=== PATIENT | female | born 1940 | race Caucasian/White ===

== ENCOUNTER 2018-06-19 10:33 | Day surgery (SDC) | payer MEDICARE ==
[2018-06-19] VITALS (10 sets, daily range): BP systolic 123–171; BP diastolic 64–108
[~2018-06-19] VITALS: Ht 167.6 cm; Wt 88.2 kg
[2018-06-19] MEDS ORDERED: normal saline 1000ml 1,000 ML IV SCH ×2 (11:05→15:10)
[2018-06-19] MEDS ORDERED: nitroGLYCERIN 0.4mg SUBLingual tab SL PRN (11:05)
[2018-06-19] MEDS ORDERED: LORazepam 0.5 MG tablet PO PRN (11:05)
[2018-06-19] MEDS ORDERED: diphenhydrAMINE 25mg capsule PO PRN (11:05)
[2018-06-19] MEDS ORDERED: NAPR220T67 PO (11:22)
[2018-06-19] MEDS ORDERED: EYE SUPPLEMENT PO (11:22)
[2018-06-19] MEDS ORDERED: OXYC10TA47 PO (11:22)
[2018-06-19] MEDS ORDERED: SERT25TA PO (11:22)
[2018-06-19] MEDS ORDERED: DEXL60CA3 PO (11:22)
[2018-06-19 11:39] LABS: BASOPHILS # (AUTO) 0.1 X10'3 (0-0.2); BASOPHILS % (AUTO) 1.6 % (0-1); EOSINOPHILS # (AUTO) 0.2 X10'3 (0-0.9); EOSINOPHILS % (AUTO) 2.1 % (0-6); LYMPHOCYTES # (AUTO) 1.1 X10'3 (1.1-4.8); LYMPHOCYTES % (AUTO) 13.3 % (21-51); MEAN CORPUSCULAR HEMOGLOBIN 29.9 PG (27.0-31.0); MEAN CORPUSCULAR HGB CONC 33.8 % (33.0-36.5); MEAN CORPUSCULAR VOLUME 88.2 FL (78-98); MEAN PLATELET VOLUME 11.1 FL (7.4-10.4); MONOCYTES # (AUTO) 0.6 X10'3 (0-0.9); MONOCYTES % (AUTO) 6.9 % (2-12); NEUTROPHILS # (AUTO) 6.3 X10'3 (1.8-7.7); NEUTROPHILS % (AUTO) 76.1 % (42-75); PRE OP HEMATOCRIT 46.2 % (35.0-45.0); PRE OP HEMOGLOBIN 15.6 g/dL (12.0-16.0); PRE OP PLATELET COUNT 270 X10'3 (140-440); RED BLOOD COUNT 5.24 X10'6 (4.20-5.60); RED CELL DISTRIBUTION WIDTH 14.6 % (11.5-14.5)
[2018-06-19 11:47] LABS: INR 1.1 INR; PARTIAL THROMBOPLASTIN TIME 28 SECONDS (22-32)
[2018-06-19 12:15] LABS: ALBUMIN 3.3 G/DL (3.4-5.0); ANION GAP 8 (8-16); BLOOD UREA NITROGEN 24 MG/DL (7-18); BUN/CREATININE RATIO 35.3 (6.6-38.0); CALCIUM 8.3 MG/DL (8.5-10.1); CHLORIDE 105 MMOL/L (99-107); CREATININE 0.68 MG/DL (0.40-0.90); GLUCOSE 90 MG/DL (70-104); SODIUM 140 MMOL/L (135-145); TOTAL CARBON DIOXIDE 26.7 MMOL/L (24-32); eGFR 84 ML/MIN
[2018-06-19 12:45] LABS: PLATELET ESTIMATE NORMAL
[2018-06-19 12:46] LABS: LARGE PLATELETS MODERATE
[2018-06-19] MEDS ORDERED: LIDOcaine 1% 30ml preserv. free vial ONE (13:20)
[2018-06-19] MEDS ORDERED: heparin 1,000unit/ml 10ml vial 0 ML ONE (13:20)
[2018-06-19] MEDS ORDERED: iohexol 350 MG/ML 50ML vial IV ONE (13:21)
[2018-06-19] MEDS ORDERED: iohexol 350MG/ML 100ml bottle IV ONE (13:21)
[2018-06-19] MEDS ORDERED: midazolam 2 mg/2 ml injection ONE (13:47)
[2018-06-19] MEDS ORDERED: fentaNYL/PF 50MCG/1 ML 2ML syringe ONE (13:47)
[2018-06-19] MEDS ORDERED: HYDROcodone/acetaminophen 5mg/325mg tablet PO PRN (15:10)
[2018-06-19] MEDS ORDERED: proCHLORperazine 10 MG/2 ml inj IV PRN (15:10)
[2018-06-19] MEDS ORDERED: OXAZEpam 15mg capsule PO PRN (15:10)
[2018-06-19] MEDS ORDERED: HYDROcodone/acetaminophen 10/325mg tab PO PRN (15:10)
[2018-06-19] MEDS ORDERED: ondansetron/PF 4mg/2ml inj IV PRN (15:10)
== END 2018-06-19 20:00 | disposition home or self-care (01) ==
LOC: SSTAY O 10:33
PROVIDERS: ATTEND Internal Medicine Cardiovascular Disease
DX: I25.10 Atherosclerotic heart disease of native coronary artery without angina pectoris (principal); I44.4 Left anterior fascicular block; F17.210 Nicotine dependence, cigarettes, uncomplicated; Z90.49 Acquired absence of other specified parts of digestive tract; Z90.710 Acquired absence of both cervix and uterus; Z87.39 Personal history of other diseases of the musculoskeletal system and connective tissue; Z79.891 Long term (current) use of opiate analgesic; Z79.899 Other long term (current) drug therapy; Z98.890 Other specified postprocedural states
CPT/HCPCS: 36415; 71046; 80048; 85025; 85610; 85730; 93005; 93458; 99152; 99153; A6257; C1760; C1769; J1644; J2250; J3010; J3490; J7030; Q0163; Q9967; A4620

== ENCOUNTER 2018-10-01 09:06 | Inpatient (IN) | payer MEDICARE ==
[2018-09-19 10:37] LABS: MEAN CORPUSCULAR HGB CONC 32.4 % (33.0-36.5); MEAN CORPUSCULAR VOLUME 89.7 FL (78-98); MEAN PLATELET VOLUME 10.4 FL (7.4-10.4); PRE OP HEMOGLOBIN 16.5 g/dL (12.0-16.0); PRE OP PLATELET COUNT 316 X10'3 (140-440); RED BLOOD COUNT 5.69 X10'6 (4.20-5.60); RED CELL DISTRIBUTION WIDTH 15.7 % (11.5-14.5)
[2018-09-19 10:49] LABS: ALBUMIN 3.6 G/DL (3.4-5.0); ALBUMIN/GLOBULIN RATIO 1.1 (1.1-1.5); ALKALINE PHOSPHATASE 80 IU/L (46-116); BLOOD UREA NITROGEN 15 MG/DL (7-18); BUN/CREATININE RATIO 23.1 (6.6-38.0); CALCIUM 8.8 MG/DL (8.5-10.1); CHLORIDE 103 MMOL/L (99-107); CREATININE 0.65 MG/DL (0.40-0.90); PRE OP ALT 16 U/L (30-65); PRE OP ANION GAP 9 (8-16); PRE OP AST 14 U/L (10-37); PRE OP BILIRUB, TOTAL 0.6 MG/DL (0.0-1.0); PRE OP GLUCOSE 100 MG/DL (70-104); PRE OP POTASSIUM 3.9 MMOL/L (3.4-5.1); PRE OP SODIUM 140 MMOL/L (135-145); TOTAL CARBON DIOXIDE 28.4 MMOL/L (24-32); TOTAL PROTEIN 6.8 G/DL (6.4-8.2); eGFR 88 ML/MIN
[2018-09-19 10:56] LABS: LARGE PLATELETS FEW; PLATELET ESTIMATE NORMAL; TOTAL CELLS COUNTED 100
[~2018-10-01] VITALS: Ht 167.6 cm; Wt 84.1 kg
[2018-10-01] VITALS (23 sets, daily range): BP systolic 106–144; BP diastolic 42–91
[~2018-10-01 09:06] MED LIST: ACET-812 PO; DEXL60CA3 PO; EYE SUPPLEMENT PO; HYDR-3973 PO; LACT10SO PO; NAPR220T67 PO; ROPIVAcaine 0.5% (5mg/ml) 30ml vial ONE; SERT50TA10 PO; VANCOMYCIN INJ 1000 MG in NORMAL SALINE 250ml IV.SOLN IV ONE; ceFAZolin inj. 2,000 MG in dextrose 5%-water 100 ML IV ONE; famotidine 20mg tablet PO ONE; ketorolac trometh. 30mg/ml inj. ONE; ringers solution, lacted 1,000 ML IV SCH; tranexamic acid inj. 870 MG in normal saline 100ml IV soln 100 ML IV ONE
[2018-10-01] MEDS ORDERED: BUPIVAcaine/PF 7.5mg/ml (0.75%) 10ml vial ONE (10:23)
[2018-10-01] MEDS ORDERED: tetracaine 1% (10mg/ml) pres. free inj. ONE (10:23)
[2018-10-01] MEDS ORDERED: ePHEDrine 50MG/ML INJ. ONE (10:25)
[2018-10-01] MEDS ORDERED: phenylephrine 10mg/ml inj. ONE (10:25)
[2018-10-01] MEDS ORDERED: morphine /PF 1mg/ml 10ml inj. ONE (10:26)
[2018-10-01] MEDS ORDERED: MIDAZolam 5mg/5ml vial ONE (10:27)
[2018-10-01] MEDS ORDERED: fentaNYL/PF 50MCG/1 ML 2ML syringe ONE (10:27)
[2018-10-01] MEDS ORDERED: tranexamic acid inj. 870 MG in normal saline 100ml IV soln 100 ML IV ONE ×2 (10:40→16:00)
[2018-10-01] MEDS ORDERED: LIDOcaine 1%/PF 5ML 10 MG/ML VIAL ONE (10:48)
[2018-10-01] MEDS ORDERED: propofol inj 20 ML IV ONE ×2 (10:48→11:50)
[2018-10-01] MEDS ORDERED: naloxone 2mg/2ml inj 1.7 MG in normal saline 500ml IV soln 500 ML IV PRN (11:51)
[2018-10-01] MEDS ORDERED: ringers solution, lacted 1,000 ML IV SCH (11:51)
[2018-10-01] MEDS ORDERED: HYDROmorphone inj. 0.5 MG/0.5 ML DISP.SYRIN IV PRN ×2 (11:55→12:55)
[2018-10-01] MEDS ORDERED: morphine 4 MG/ML inj SYRINge IV PRN (11:55)
[2018-10-01] MEDS ORDERED: diphenhydrAMINE 50 mg/ml inj IV PRN (11:55)
[2018-10-01] MEDS ORDERED: ondansetron/PF 4mg/2ml inj IV PRN ×3 (11:55→12:55)
[2018-10-01] MEDS ORDERED: diphenhydrAMINE 25mg capsule PO PRN ×2 (12:55)
[2018-10-01] MEDS ORDERED: magnesium hydroxide 30ml (MOM) UD suspension PO PRN (12:55)
[2018-10-01] MEDS: potassium cl 20mEq in 1/2 NS 1,000 ML IV SCH ×2 (12:55→20:06)
[2018-10-01] MEDS ORDERED: bisacodyl 10mg suppository rectal RC PRN (12:55)
[2018-10-01] MEDS ORDERED: oxyCODONE IR 5mg (immed. release) tablet PO PRN (12:55)
[2018-10-01] MEDS ORDERED: HYDROmorphone 1 mg/ml syringe IV PRN (12:55)
[2018-10-01] MEDS ORDERED: acetaminophen 325mg tablet PO PRN (12:55)
[2018-10-01] MEDS: gabapentin 300mg capsule PO SCH ×2 (13:00→20:05)
--- NOTE | 2018-10-01 13:15 | NUR ---
Received from OR via BED , accompanied by Anesthesiologist and report given by Anesthesiolgist. PATIENT WAKING UP, DENIES PAIN, V/S WNL, NEUROVASCULAR CHECKS INTACT, 20G PIV LUE , DRESSING TO LEFT KNEE CDI W/ COLD POWDER PACK AND W/ SCD ON. F/C DRAINING CLEAR YELLOW URINE. SENSATION T-9.
[2018-10-01] MEDS: ROPIVACAINE HCL/PF PAIN PUMP 400 ML IJ SCH (13:31)
[2018-10-01] MEDS: acetaminophen 325mg tablet PO SCH ×2 (14:00→20:06)
[2018-10-01] MEDS: ketorolac tromethamine 15mg/ml inj. IV SCH ×2 (14:00→20:06)
--- NOTE | 2018-10-01 15:15 | NUR ---
PATIENT WAKING UP, DENIES PAIN, V/S WNL, NEUROVASCULAR CHECKS INTACT, 20G PIV LUE , DRESSING TO LEFT KNEE CDI W/ COLD POWDER PACK AND W/ SCD ON. F/C DRAINING CLEAR YELLOW URINE. SENSATION T-11. PATIENT TAKEN TO ORTHO WITH ALL BELONGINGS AND HOOKED UP TO MONITORS IN ROOM AND REPORT GIVEN TO REGIONAL SAFETY MANAGER WHO HAS TAKEN OVER PATIENT CARE.
[2018-10-01] MEDS: lactulose 20gm/30ml cup PO SCH ×2 (16:00→23:33)
[2018-10-01] MEDS: ceFAZolin 1GM/D5W- ADD-VANTAGE 50 ML IV SCH ×2 (16:30→23:33)
--- NOTE | 2018-10-01 18:09 | NUR ---
RECEIVED REPORT FROM VENESSA MORATAYA AND ASSUMED PATIENT CARE
[2018-10-01] MEDS ORDERED: vancomycin/NS 1 GM ADD-VANTAGE 250 ML IV SCH (20:00)
[2018-10-01] MEDS: sennosides 8.6mg tablet PO SCH (20:05)
[2018-10-02 02:00] VITALS: BP 118/56
[2018-10-02] MEDS: ketorolac tromethamine 15mg/ml inj. IV SCH ×2 (02:07→08:06)
[2018-10-02] MEDS: acetaminophen 325mg tablet PO SCH ×4 (02:07→21:00)
[2018-10-02] MEDS: potassium cl 20mEq in 1/2 NS 1,000 ML IV SCH ×2 (04:55→13:24)
[2018-10-02 06:00] VITALS: BP 136/64
--- NOTE | 2018-10-02 06:00 | NUR ---
Patient in room [facility]TH[facility] 4017. I have received report from MOE MORATAYA and had the opportunity to ask questions and assume patient care.
[2018-10-02 06:01] LABS: BASOPHILS % (AUTO) 0.3 % (0-1); EOSINOPHILS # (AUTO) 0.1 X10'3 (0-0.9); HEMATOCRIT 40.8 % (35.0-45.0); HEMOGLOBIN 13.7 g/dl (12.0-16.0); LYMPHOCYTES # (AUTO) 1.1 X10'3 (1.1-4.8); LYMPHOCYTES % (AUTO) 10.5 % (21-51); MEAN CORPUSCULAR HEMOGLOBIN 30.2 PG (27.0-31.0); MEAN CORPUSCULAR HGB CONC 33.7 % (33.0-36.5); MEAN CORPUSCULAR VOLUME 89.6 FL (78-98); MEAN PLATELET VOLUME 10.7 FL (7.4-10.4); MONOCYTES # (AUTO) 0.9 X10'3 (0-0.9); MONOCYTES % (AUTO) 8.8 % (2-12); NEUTROPHILS % (AUTO) 79.4 % (42-75); PLATELET COUNT 235 X10'3 (140-440); RED BLOOD COUNT 4.55 X10'6 (4.20-5.60); RED CELL DISTRIBUTION WIDTH 16.2 % (11.5-14.5); WHITE BLOOD COUNT 10.1 X10'3 (4.5-11.0)
--- NOTE | 2018-10-02 06:06 | NUR ---
REPORT GIVEN TO JANNET MORATAYA
[2018-10-02 06:19] LABS: ANION GAP 7 (8-16); CHLORIDE 106 MMOL/L (99-107); POTASSIUM 4.8 MMOL/L (3.5-5.1); SODIUM 139 MMOL/L (135-145); TOTAL CARBON DIOXIDE 26.1 MMOL/L (24-32)
[2018-10-02 06:39] LABS: LARGE PLATELETS FEW; PLATELET ESTIMATE NORMAL
[2018-10-02] MEDS ORDERED: non-formulary drug (Acetaminophen (Tylenol Extra Strength) 1 TABLET) PO SCH (08:00)
[2018-10-02] MEDS ORDERED: EYE SUPPLEMENT PO SCH (08:00)
[2018-10-02] MEDS: lactulose 20gm/30ml cup PO SCH ×2 (08:06→15:24)
[2018-10-02] MEDS: pantoprazole 40mg Tablet.DR PO SCH (08:06)
[2018-10-02] MEDS: gabapentin 300mg capsule PO SCH ×3 (08:06→20:59)
[2018-10-02] MEDS: aspirin 325mg tablet PO SCH (08:07)
[2018-10-02] MEDS: sertraline 25mg tablet PO SCH (08:07)
[2018-10-02 10:00] VITALS: BP 131/65
--- NOTE | 2018-10-02 11:18 | NUR ---
Joint replacement consult: Pt seen by RD for written/verbal high protein ed. RD reviewed high protein needs for wound healing, immune strength, high protein foods, and protein supplementation options. RD contact information provided in case of further questions. Pt declines additional proteins. RD received pt meal preferences for lunch and dinner and d/w dietary. Will continue to monitor. Addendum: 10/02/18 at [address] Amended: Links added.
[2018-10-02 14:00] VITALS: BP 129/72
[2018-10-02] MEDS: ROPIVACAINE HCL/PF PAIN PUMP 400 ML IJ SCH (15:24)
--- NOTE | 2018-10-02 15:25 | NUR ---
INCREASED ON-Q PUMP TO 10ML/HR. WILL CONTINUE TO MONITOR,
[2018-10-02 18:00] VITALS: BP 129/72
--- NOTE | 2018-10-02 18:15 | NUR ---
Problems reprioritized. Patient report given, questions answered & plan of care reviewed with CH[place] MORATAYA.
[2018-10-02] MEDS: oxyCODONE IR 5mg (immed. release) tablet PO PRN (20:03)
[2018-10-02] MEDS: celeCOXIB 100mg capsule PO SCH (21:00)
[2018-10-02] MEDS: sennosides 8.6mg tablet PO SCH (21:00)
[2018-10-02 22:00] VITALS: BP 131/57
[2018-10-03] MEDS: oxyCODONE IR 5mg (immed. release) tablet PO PRN ×3 (00:51→09:23)
[2018-10-03] MEDS: acetaminophen 325mg tablet PO SCH ×2 (01:46→08:08)
[2018-10-03 06:00] VITALS: BP 115/55
--- NOTE | 2018-10-03 06:00 | NUR ---
Patient in room [facility]TH[facility] 4017. I have received report from CH[place] MORATAYA and had the opportunity to ask questions and assume patient care.
[2018-10-03 06:37] LABS: BASOPHILS % (AUTO) 0.2 % (0-1); EOSINOPHILS # (AUTO) 0.2 X10'3 (0-0.9); EOSINOPHILS % (AUTO) 2.6 % (0-6); HEMATOCRIT 38.8 % (35.0-45.0); HEMOGLOBIN 12.8 g/dl (12.0-16.0); LYMPHOCYTES % (AUTO) 12.6 % (21-51); MEAN CORPUSCULAR HEMOGLOBIN 29.5 PG (27.0-31.0); MEAN CORPUSCULAR HGB CONC 32.9 % (33.0-36.5); MEAN CORPUSCULAR VOLUME 89.6 FL (78-98); MEAN PLATELET VOLUME 10.9 FL (7.4-10.4); MONOCYTES % (AUTO) 12.7 % (2-12); NEUTROPHILS # (AUTO) 5.5 X10'3 (1.8-7.7); NEUTROPHILS % (AUTO) 71.9 % (42-75); PLATELET COUNT 231 X10'3 (140-440); RED BLOOD COUNT 4.33 X10'6 (4.20-5.60); RED CELL DISTRIBUTION WIDTH 16.3 % (11.5-14.5); WHITE BLOOD COUNT 7.7 X10'3 (4.5-11.0)
[2018-10-03] MEDS ORDERED: ASPI-1 PO (07:50)
[2018-10-03] MEDS: lactulose 20gm/30ml cup PO SCH ×2 (08:00)
[2018-10-03] MEDS: celeCOXIB 100mg capsule PO SCH (08:08)
[2018-10-03] MEDS: gabapentin 300mg capsule PO SCH (08:08)
[2018-10-03] MEDS: pantoprazole 40mg Tablet.DR PO SCH (08:08)
[2018-10-03] MEDS: aspirin 325mg tablet PO SCH (08:08)
[2018-10-03] MEDS: sertraline 25mg tablet PO SCH (08:09)
[2018-10-03 10:00] VITALS: BP 163/63
--- NOTE | 2018-10-03 10:30 | NUR ---
PATIENT DC HOME SAFELY WITH NEPHEW, ALL BELONGINGS IN POSSESSION. PATIENT ACKNOWLEDGES UNDERSTANDING OF DISCHARGE INSTRUCTIONS. IV REMOVED.
[2018-10-03] MEDS ORDERED: acetaminophen 325mg tablet PO PRN (12:55)
== END 2018-10-03 10:35 | disposition home or self-care (01) | DRG 470 ==
LOC: PAS IN 09:06 → EDSTATUS 12:00 → ORTHO 4S 15:25
PROVIDERS: ADMIT Orthopaedic Surgery; ATTEND Orthopaedic Surgery
PROC: 8E0YXBZ Computer Assisted Procedure of Lower Extremity (ICD-10-PCS; 2018-10-01)
PROC: 8E0Y0CZ Robotic Assisted Procedure of Lower Extremity, Open Approach (ICD-10-PCS; 2018-10-01)
PROC: 3E0T3BZ Introduction of Anesthetic Agent into Peripheral Nerves and Plexi, Percutaneous Approach (ICD-10-PCS; 2018-10-01)
PROC: 0SRD0J9 Replacement of Left Knee Joint with Synthetic Substitute, Cemented, Open Approach (ICD-10-PCS; principal; 2018-10-01 10:25)
DX: M17.12 Unilateral primary osteoarthritis, left knee (principal); K21.9 Gastro-esophageal reflux disease without esophagitis; F32.9 Major depressive disorder, single episode, unspecified; M25.762 Osteophyte, left knee; M21.062 Valgus deformity, not elsewhere classified, left knee; F17.200 Nicotine dependence, unspecified, uncomplicated; G89.29 Other chronic pain; M54.9 Dorsalgia, unspecified; R26.9 Unspecified abnormalities of gait and mobility; E66.9 Obesity, unspecified; Z90.49 Acquired absence of other specified parts of digestive tract; Z79.899 Other long term (current) drug therapy; Z68.29 Body mass index [BMI] 29.0-29.9, adult
CPT/HCPCS: 36415; 80051; 80053; 82948; 85025; 87070; 93005; 97110; 97116; 97161; 97530; A6455; A7000; C1713; C1758; C1776; G0378; J0690; J1885; J2001; J2250; J2274; J2310; J2370; J2704; J2795; J3010; J3370; J3490; J7030; J7060; J7120

== ENCOUNTER 2025-06-25 12:57 | Outpatient (CLI) | payer MEDICARE ==
[~2025-06-25 12:57] MED LIST changes: +ASPI-1 PO; +LACT-373 PO; -LACT10SO PO; -ROPIVAcaine 0.5% (5mg/ml) 30ml vial ONE; +SERT-433 PO; -SERT50TA10 PO; -VANCOMYCIN INJ 1000 MG in NORMAL SALINE 250ml IV.SOLN IV ONE; -ceFAZolin inj. 2,000 MG in dextrose 5%-water 100 ML IV ONE; -famotidine 20mg tablet PO ONE; -ketorolac trometh. 30mg/ml inj. ONE; -ringers solution, lacted 1,000 ML IV SCH; -tranexamic acid inj. 870 MG in normal saline 100ml IV soln 100 ML IV ONE
--- NOTE | 2025-06-25 18:22 | RADIOLOGY REPORT ---
Procedure: CT CT LOWER EXTREMITY 06/25/2025 01:28 PM Indication: UNILATERAL PRIMARY OSTEOARTHRITIS, RIGHT KNEE Comparison Study: None Technique: Axial images right lower extremity were obtained and reformatted in coronal and sagittal planes. All CT scans at this medical facility are performed using dose modulation techniques as appropriate to a performed exam including the following: Automated exposure control was utilized; adjustment of the MA and/or KV according to patient size; and use of iterative reconstruction technique. CT Dose: CTDI volume is 38.10+ 8.32+ 8.32+ 0.21 mGy. Dose-length product is 1488.77 mGy*cm FINDINGS: Evaluation is slightly limited due to streak artifact from right knee arthroplasty. Bones: Bony demineralization. No acute fracture. There is tricompartment osteoarthritis in the right knee joint with subchondral cysts and subchondral sclerosis in the medial and lateral compartments. A prominent subchondral cyst is seen in the medial compartment of the proximal tibia. Moderate to marked lateral compartment and and moderate medial compartment joint space narrowing. There is chondrocalcinosis of the medial and lateral joint space compartments. Soft tissues: The Muscle bundles about the right knee are intact. Small right knee joint effusion. Calcified athero sclerosis is seen. The pelvic small bowel loops and large bowel loops normal caliber. The urinary bladder is mildly distended. Prior hysterectomy. No pelvic lymphadenopathy is seen. IMPRESSION: 1. Bony demineralization. No acute osseous abnormality. 2. Tricompartment osteoarthritis of the right knee with subchondral cysts and subchondral sclerosis in the medial and lateral joint space compartments. A prominent subchondral cyst is seen in the medial compartment in the proximal tibia. 3. Moderate to marked lateral compartment and moderate medial compartment joint space narrowing related to osteoarthritis. 4. Trace chondrocalcinosis of the medial and lateral joint space compartments. 5. Small knee joint effusion.
== END 2025-06-25 23:59 | disposition home or self-care (01) ==
LOC: RAD 12:57
PROVIDERS: ATTEND Orthopaedic Surgery
DX: M17.11 Unilateral primary osteoarthritis, right knee (principal); M25.461 Effusion, right knee; M25.861 Other specified joint disorders, right knee; M81.0 Age-related osteoporosis without current pathological fracture; N32.89 Other specified disorders of bladder; Z90.710 Acquired absence of both cervix and uterus
CPT/HCPCS: 73700